=== PATIENT | female | born 1945 | race Asian ===

== ENCOUNTER → 2016-07-06 | Outpatient (CLI) | payer OTHER | LOC: FIMAGING 07:07 | PROVIDERS: ATTEND Internal Medicine | DX: M50.30 Other cervical disc degeneration, unspecified cervical region (principal); M85.80 Other specified disorders of bone density and structure, unspecified site ==

== ENCOUNTER → 2016-07-16 | Outpatient (CLI) | payer OTHER | LOC: FIMAGING 15:38 | DX: Z12.31 Encounter for screening mammogram for malignant neoplasm of breast (principal) | CPT/HCPCS: G0202 ==

== ENCOUNTER → 2016-08-03 | Outpatient (CLI) | payer OTHER | LOC: FIMAGING 11:33 | PROVIDERS: ATTEND Orthopaedic Surgery | DX: M25.811 Other specified joint disorders, right shoulder (principal); M24.011 Loose body in right shoulder; M25.711 Osteophyte, right shoulder ==

== ENCOUNTER → 2016-09-03 | Outpatient (CLI) | payer OTHER | LOC: FIMAGING 10:49 | PROVIDERS: ATTEND Internal Medicine | DX: Z13.820 Encounter for screening for osteoporosis (principal); M85.80 Other specified disorders of bone density and structure, unspecified site; M54.2 Cervicalgia; Z78.0 Asymptomatic menopausal state ==

== ENCOUNTER → 2017-04-03 | Outpatient (CLI) | payer OTHER ==
--- NOTE | 2017-04-06 06:26 | CPEEG ---
[f rep st] ELECTROENCEPHALOGRAM DATE OF STUDY: 04/03/2017 INTERPRETATION: This EEG contains potentially epileptogenic abnormalities over the left temporal head region. These findings may be consistent with a focal seizure disorder. REPORT: This EEG contains 9-10 Hz alpha to posterior head regions. The primary feature of this recording was left temporal intermittent rhythmic delta activity (TIRDA). This is present at rest and continued during drowsiness and sleep. There was more nonspecific bitemporal slowing during drowsiness and occasional nonspecific activation of wicket waves which were of no clinical significance. The patient did not have any clinical events or specific activation with photic stimulation or hyperventilation. The findings of this study were communicated with the primary neurologic provider, Dr. Ravindra Albrecht. /[id number]/MODL MTDD
== END ==
LOC: FCPNEURO 09:57
PROVIDERS: ATTEND Psychiatry & Neurology Neurology
DX: G40.909 Epilepsy, unspecified, not intractable, without status epilepticus (principal)

== ENCOUNTER → 2017-05-01 | Outpatient (CLI) | payer OTHER | LOC: BHFA 14:00 | PROVIDERS: ATTEND Internal Medicine Cardiovascular Disease | DX: R55 Syncope and collapse (principal) | CPT/HCPCS: 78452; 93017; 93306; A9500 ==

== ENCOUNTER → 2017-05-10 | Outpatient (CLI) | payer OTHER ==
[~2017-05-10] MED LIST: GADOBUTROL 10 ML VIAL IVP ONE
== END ==
LOC: FIMAGING 15:05
PROVIDERS: ATTEND Otolaryngology
DX: G31.9 Degenerative disease of nervous system, unspecified (principal)
CPT/HCPCS: 70553; A9585

== ENCOUNTER → 2017-06-17 | Outpatient (CLI) | payer OTHER ==
--- NOTE | 2017-06-17 20:23 | CPEEG ---
[f rep st] ELECTROENCEPHALOGRAM DATE OF STUDY: 06/17/2017 INTERPRETATION: This 4-hour video EEG recording contains probable potentially epileptogenic abnormalities over the bitemporal head regions, maximal left. These findings may be consistent with a focal seizure disorder. The findings of the study were communicated to the patient's primary neurologist, Dr Ravindra Albrecht. REPORT: This EEG contains 9-10 Hz alpha to the posterior head regions. The primary feature of this recording was the presence of left and right temporal intermittent rhythmic delta activity (TIRDA), maximal left. This was present at rest and activated during drowsiness. In addition, there was some nonspecific bitemporal slowing present. The patient went on to fall asleep during the study. During drowsiness and sleep, there was nonspecific activation of bitemporal wicket waves which are of no clinical significance. In addition, there were some sharply contoured wave forms of uncertain clinical significance over the bitemporal head regions. There were no seizure discharges recorded during the EEG. The patient did not have any clinical events during the video EEG monitoring session. The findings of the study were communicated to the patient's primary neurologist , Dr Ravindra Albrecht. /[id number]/MODL MTDD
== END ==
LOC: FCPNEURO 07:54
PROVIDERS: ATTEND Psychiatry & Neurology Neurology
DX: R55 Syncope and collapse (principal); R41.3 Other amnesia

== ENCOUNTER → 2017-06-17 | Outpatient (CLI) | payer OTHER | LOC: BHFA 15:30 | PROVIDERS: ATTEND Internal Medicine Cardiovascular Disease | DX: R55 Syncope and collapse (principal) ==

== ENCOUNTER → 2017-06-21 | Outpatient (CLI) | payer OTHER | LOC: FIMAGING 07:25 | PROVIDERS: ATTEND Internal Medicine | DX: R22.33 Localized swelling, mass and lump, upper limb, bilateral (principal) ==

== ENCOUNTER → 2017-07-17 | Outpatient (CLI) | payer OTHER | LOC: FIMAGING 13:34 | PROVIDERS: ATTEND Internal Medicine | DX: Z12.31 Encounter for screening mammogram for malignant neoplasm of breast (principal) ==

== ENCOUNTER → 2017-08-08 | Outpatient (CLI) | payer OTHER | LOC: FCPNEURO 21:30 | PROVIDERS: ATTEND Student in an Organized Health Care Education/Training Program | DX: G47.33 Obstructive sleep apnea (adult) (pediatric) (principal) ==

== ENCOUNTER → 2017-09-20 | Outpatient (CLI) | payer OTHER | LOC: FIMAGING 18:59 | PROVIDERS: ATTEND Neurological Surgery | DX: M48.02 Spinal stenosis, cervical region (principal); M50.31 Other cervical disc degeneration, high cervical region; M51.36 Other intervertebral disc degeneration, lumbar region; M48.061 Spinal stenosis, lumbar region without neurogenic claudication; G95.89 Other specified diseases of spinal cord ==

== ENCOUNTER → 2017-09-21 | Outpatient (CLI) | payer OTHER | LOC: FIMAGING 11:37 | PROVIDERS: ATTEND Neurological Surgery | DX: M50.31 Other cervical disc degeneration, high cervical region (principal); M48.02 Spinal stenosis, cervical region; M25.78 Osteophyte, vertebrae ==

== ENCOUNTER → 2018-07-19 | Outpatient (CLI) | payer OTHER | LOC: FIMAGING 15:06 | PROVIDERS: ATTEND Internal Medicine | DX: Z12.31 Encounter for screening mammogram for malignant neoplasm of breast (principal) ==